=== PATIENT | female | born 1985 | race Caucasian/White ===

== ENCOUNTER → 2018-04-09 08:50 | Outpatient (CLI) | payer BC, SELFPAY ==
[2018-04-09 09:41] LABS: Add Manual Diff / Slide Review NO; Eosinophils Percent Auto 3.2 % (2-4); Hematocrit 38.4 % (36-46); Hemoglobin 12.8 g/dL (12.0-16.0); Lymphocytes Percent Auto 35.3 % (25-40); Mean Corpuscular HGB Conc 33.2 % (30-36); Mean Corpuscular Hemoglobin 29.3 PG (26-34); Monocytes Percent Auto 8.8 % (3-14); Neutrophils Absolute Auto 2400 /uL (3000-5900); Neutrophils Percent Auto 51.7 % (50-75); Platelet Count 284 X10^3/uL (150-400); Red Blood Cell Count 4.36 X10^6/uL (4.0-5.2); Red Cell Distribution Width 12.3 % (11.6-14.8); White Blood Cell Count 4.7 X10^3/uL (4.5-11.0)
[2018-04-09 10:45] LABS: Ferritin 38.7 ng/mL (6.27-137); Thyroid Stimulating Hormone 2.49 uIU/mL (0.47-4.68)
[2018-04-10 14:51] LABS: Progesterone 5.9 ng/mL
== END ==
PROVIDERS: Visit Provider Nurse Practitioner Women's Health
DX: N94.3 Premenstrual tension syndrome (principal); R53.83 Other fatigue
CPT/HCPCS: 36415; 82728; 84144; 84443; 85025

== ENCOUNTER → 2020-08-18 10:19 | Outpatient (CLI) | payer BC, SELFPAY ==
[2020-08-18] MEDS: COVID-19 VACC #1, MRNA(MOD) 100 MCG/0.5 ML VIAL IM (10:27)
== END ==
PROVIDERS: PCP Registered Nurse Diabetes Educator; Visit Provider Internal Medicine
DX: Z23 Encounter for immunization (principal)
CPT/HCPCS: 0011A; 91301

== ENCOUNTER → 2020-09-15 10:00 | Outpatient (CLI) | payer BC, SELFPAY ==
[2020-09-15] MEDS: COVID-19 VACC #2, MRNA(MOD) 100 MCG/0.5 ML VIAL IM (10:06)
== END ==
PROVIDERS: PCP Registered Nurse Diabetes Educator; Visit Provider Internal Medicine
DX: Z23 Encounter for immunization (principal)
CPT/HCPCS: 0012A; 91301